=== PATIENT | female | born 1945 | race Two or more races ===

== ENCOUNTER 2019-07-09 11:13 | Outpatient (CLI) | payer OTHER | END 2019-07-09 11:25 | disposition home or self-care (01) | LOC: MAMO-SONO 11:13 | DX: Z12.31 Encounter for screening mammogram for malignant neoplasm of breast (principal); N60.11 Diffuse cystic mastopathy of right breast; N60.12 Diffuse cystic mastopathy of left breast; Z87.898 Personal history of other specified conditions ==

== ENCOUNTER → 2020-07-15 | Outpatient (CLI) | payer OTHER | END | disposition home or self-care (01) | LOC: TOM 07:15 → RAD 07:19 | PROVIDERS: ATTEND Family Medicine | DX: J84.112 Idiopathic pulmonary fibrosis (principal); Z12.31 Encounter for screening mammogram for malignant neoplasm of breast; R06.02 Shortness of breath; K21.9 Gastro-esophageal reflux disease without esophagitis; J30.1 Allergic rhinitis due to pollen ==

== ENCOUNTER 2021-07-18 13:13 | Outpatient (CLI) | payer OTHER | END 2021-07-18 13:24 | disposition home or self-care (01) | LOC: MAMO-SONO 13:13 | DX: N64.89 Other specified disorders of breast (principal); Z12.31 Encounter for screening mammogram for malignant neoplasm of breast ==

== ENCOUNTER 2022-10-10 09:29 | Outpatient (CLI) | payer OTHER | END 2022-10-10 09:36 | disposition home or self-care (01) | LOC: MAMO-SONO 09:29 | DX: Z12.31 Encounter for screening mammogram for malignant neoplasm of breast (principal); N60.11 Diffuse cystic mastopathy of right breast; N60.12 Diffuse cystic mastopathy of left breast; M79.672 Pain in left foot ==